=== PATIENT | female | born 1995 | race African-American/Black ===

== ENCOUNTER 2019-09-27 13:52 | Emergency (ER) | payer OTHER ==
[~2019-09-27] VITALS: Ht 157.5 cm; Wt 77.3 kg
[2019-09-27 13:59] VITALS: Ht 157.5 cm; Wt 77.3 kg
[2019-09-27] MEDS ORDERED: BACLOFEN20 M1 PO (15:16)
[2019-09-27] MEDS ORDERED: VOLTAREN75 MG PO (15:16)
[2019-09-27 16:00] VITALS: BP 116/73
== END 2019-09-27 16:00 | disposition home or self-care (01) ==
LOC: D.ER 13:52
DX: R11.2 Nausea with vomiting, unspecified (principal); R42 Dizziness and giddiness; J45.909 Unspecified asthma, uncomplicated; Z72.0 Tobacco use

== ENCOUNTER 2019-09-30 00:48 | Emergency (ER) | payer OTHER ==
[~2019-09-30] VITALS: Ht 157.5 cm; Wt 77.3 kg
[~2019-09-30 00:48] MED LIST: BACLOFEN20 M1 PO; VOLTAREN75 MG PO
[2019-09-30 00:52] VITALS: Ht 157.5 cm; Wt 77.3 kg
[2019-09-30 01:29] LABS: BASOPHILS 0.3 % (0-2); EOSINOPHILS 0.8 % (0-7); HEMOGLOBIN 12.4 g/dL (12-16); IMMATURE GRANULOCYTES 0.3 % (0-5); LYMPHOCYTES 22.5 % (15-50); MCH 30.4 pg (26.0-34.0); MCHC 34.4 g/dL (31.0-37.0); MCV 88.2 fL (80.0-100.0); MEAN PLATELET VOLUME 8.3 fL (7.4-10.4); MONOCYTES 10.4 % (2-11); NEUTROPHILS 65.7 % (40-80); PLATELET COUNT 379 10x3/uL (130-400); RBC 4.08 10x6/uL (4.00-5.40); RDW 12.2 % (11.5-14.5); WBC 10.8 10x3/uL (4.8-10.8)
[2019-09-30 01:31] LABS: ANION GAP 18.1 mmol/L (8-16); CALCIUM 9.3 mg/dL (8.5-10.1); CARBON DIOXIDE 21.6 mmol/L (21.0-32.0); POTASSIUM - SERUM 3.7 mmol/L (3.5-5.1)
[2019-09-30 01:34] LABS: ALBUMIN 4.1 g/dL (3.4-5.0); BILIRUBIN - TOTAL 1.2 mg/dL (0.2-1.3)
[2019-09-30] MEDS ORDERED: ZOFRAN ODT4 MG/UDTAB PO (02:51)
[2019-09-30 04:30] VITALS: BP 120/77
== END 2019-09-30 04:20 | disposition home or self-care (01) ==
LOC: D.ER 00:48
PROVIDERS: Family Medicine
DX: R11.2 Nausea with vomiting, unspecified (principal); R42 Dizziness and giddiness; J45.909 Unspecified asthma, uncomplicated; Z72.0 Tobacco use